=== PATIENT | female | born 1975 | race Caucasian/White ===

== ENCOUNTER 2022-06-01 10:43 | Emergency (ER) | payer SELFPAY ==
[~2022-06-01] VITALS: Ht 170.2 cm; Wt 86.2 kg
[~2022-06-01 10:43] MED LIST: ALBU90OI INH; AMOX500 PO; DOXY100 PO; HYDACE5 PO; METR500 PO; MULVITMIND; PRED20 PO; SULF10OPSA OU; TOBR.3OPSO OP
[2022-06-01] MEDS ORDERED: Amoxicillin500 MG PO (10:52)
== END 2022-06-01 11:05 | disposition home or self-care (01) ==
LOC: ER 10:43
DX: K04.7 Periapical abscess without sinus (principal); F17.200 Nicotine dependence, unspecified, uncomplicated; Z79.899 Other long term (current) drug therapy
CPT/HCPCS: 99282